=== PATIENT | male | born 1980 ===

== ENCOUNTER 2018-04-18 09:59 | Emergency (ER) | payer SELFPAY ==
[2018-04-18 10:13] VITALS: BP 124/66; PULSE 69; RESP 16; TEMP 98.4; O2SAT 100
[2018-04-18 11:11] LABS: BILIRUBIN, URINE NEG (NEG); BLOOD, URINE TRACE (NEG); GLUCOSE,URINE NEG (NEG); KETONE, URINE NEG (NEG); MUCUS URINE FEW /lpf (OCC); NITRITE,URINE NEG (NEG); PH, URINE 7.5 (5.0-8.5); URINE COLOR YELLOW (YELLW/STRAW); URINE LEUKOCYTE ESTERASE NEG (NEG)
[2018-04-18] MEDS ORDERED: AZITHROMYCIN PWD FOR SUSP 1 GM PACKET PO ONE (11:30)
[2018-04-18] MEDS ORDERED: LIDOCAINE HCL 1% 50 ML VIAL XX ONE (11:30)
[2018-04-18] MEDS ORDERED: cefTRIAXone 250 MG VIAL IM ONE (11:30)
--- NOTE | 2018-04-18 11:33 | PD ---
HPI Chief Complaint: Complaint Time Seen by Provider: 10:21 Travel History International Travel<30 days: No Contact w/Intl Traveler<30days: No Traveled to known affect area: No History of Present Illness HPI 37-year-old [place]-speaking male presents to the ED for evaluation of 3 day history of dysuria. All communication was performed through the [employer] service. Patient denies fever, chills, nausea, vomiting, abdominal pain, testicular pain, penile discharge, hematuria. He endorses unprotected oral sex with a female partner approximately 1 week ago. Denies any chronic illnesses. No treatment attempted at home. [facility] Social History Tobacco Use: No Allergies-Medications (Allergen,Severity, Reaction): Coded Allergies: No Known Allergies (Unverified , 04/18/18) Review of Systems Except as stated in HPI: all other systems reviewed are Neg Physical Exam Narrative GENERAL: Well-nourished, well-developed male in no acute distress. SKIN: Focused skin assessment warm/dry. HEAD: Normocephalic. EYES: No scleral icterus. No injection or drainage. NECK: Supple, trachea midline. No JVD or lymphadenopathy. CARDIOVASCULAR: Regular rate and rhythm without murmurs, gallops, or rubs. RESPIRATORY: Breath sounds equal bilaterally. No accessory muscle use. GASTROINTESTINAL: Abdomen soft, non-tender, nondistended. Active bowel signs. GENITOURINARY: Uncircumcised. Testes descended bilaterally without evidence of rotation. No lesions or erythema. No urethral discharge. MUSCULOSKELETAL: No cyanosis, or edema. BACK: Nontender without obvious deformity. No CVA tenderness. Data Data Last Documented VS Vital Signs Date Time Temp Pulse Resp B/P (MAP) Pulse Ox O2 Delivery O2 Flow Rate FiO2 04/18/18 10:13 98.4 69 16 124/66 (85) 100 Orders Orders Urinalysis - C+S If Indicated (04/18/18 10:21) Gc And Chlamydia Pcr (04/18/18 10:21) Azithromycin Powd Pack (Zithromax Powd P (04/18/18 11:30) Labs Laboratory Tests Test 04/18/18 10:28 Urine Color YELLOW Urine Turbidity CLEAR Urine pH 7.5 Urine Specific [place] 1.014 Urine Protein NEG mg/dL Urine Glucose (UA) NEG mg/dL Urine Ketones NEG mg/dL Urine Occult Blood TRACE Urine Nitrite NEG Urine Bilirubin NEG Urine Urobilinogen LESS THAN 2.0 MG/DL Urine Leukocyte Esterase NEG Urine RBC 2 /hpf Urine Mucus FEW /lpf Microscopic Urinalysis Comment CULT NOT INDICATED MDM Medical Decision Making Medical Screen Exam Complete: Yes Emergency Medical Condition: Yes Differential Diagnosis Urethritis versus STD versus UTI versus other Narrative Course 37-year-old [place]-speaking male presents the ED for evaluation of 3 day history of urethritis. Onset after unprotected oral sex with a female partner. Otherwise asymptomatic. Physical exam is unremarkable. Patient agrees to empiric treatment for gonorrhea and chlamydia. He is instructed to follow-up with the health department for a full battery of STD testing. He indicated understanding of instructions. He is stable and discharged home. All communication via [employer] services. Diagnosis Primary Impression: Urethritis Additional Instructions: Use condoms for safer sex practice. Notify all partners of symptoms. Abstain from sex until test of cure is performed at the health department in 1 week. Follow-up with the health department in 1 week as discussed for full battery of STD testing and test of cure. Return to the ED for worsening symptoms or any urgent or emergent medical condition. Disposition: 01 DISCHARGE HOME Condition: Stable Suzy Zamudio April 18, 2018 11:33
== END 2018-04-18 12:20 | disposition home or self-care (01) ==
LOC: NEPK 09:59
DX: N34.2 Other urethritis (principal)
CPT/HCPCS: 81001; 87491; 87591; 96372; 99283; J0696